=== PATIENT | male | born 1965 | race Caucasian/White ===

== ENCOUNTER 2020-04-23 14:07 | Emergency (ER) | payer SELFPAY ==
[~2020-04-23] VITALS: Ht 185.4 cm; Wt 122.5 kg
--- NOTE | 2020-04-23 14:07 | NUR ---
PT BIBA BLS TO ER BED 02
[2020-04-23] MEDS ORDERED: NACL 0.9% 1,000 ML IV ONE ×2 (14:40→16:55)
[2020-04-23 15:03] LABS: BASOPHILS % (AUTO) 0.5 % (0.0-2.0); EOSINOPHILS # (AUTO) 0.1 K/uL (0-0.4); EOSINOPHILS % (AUTO) 1.7 % (0.0-4.0); HEMATOCRIT 35.1 % (36-52); HEMOGLOBIN 11.5 g/dL (12.0-18.0); LYMPHOCYTES # (AUTO) 1.6 K/uL (2.0-11.5); LYMPHOCYTES % (AUTO) 31.2 % (20.5-51.1); MEAN CORPUSCULAR HEMOGLOBIN 29 pg (27-31); MEAN CORPUSCULAR HGB CONC 33 g/dL (33-37); MEAN CORPUSCULAR VOLUME 89.3 fL (80-94); MONOCYTES # (AUTO) 0.6 K/uL (0.8-1.0); NEUTROPHILS # (AUTO) 2.9 K/uL (1.8-7.7); NEUTROPHILS % (AUTO) 54.6 % (42.2-75.2); PLATELET COUNT (AUTO) 106 K/uL (140-450); RED BLOOD CELL COUNT(AUTO) 3.93 MIL/uL (4.20-6.10); RED CELL DISTRIBUTION WIDTH 15.6 % (11.6-13.7); WHITE BLOOD COUNT (AUTO) 5.3 K/uL (4.8-10.8)
[2020-04-23 15:24] LABS: ACETAMINOPHEN < 0.5 ug/ml (10-30); ALBUMIN 2.8 g/dL (3.4-5.0); ANION GAP 15.6 (8-16); ASPARTATE AMINOTRANSFERASE 140 U/L (15-37); CARBON DIOXIDE 22.6 mmol/L (21-32); CHLORIDE 103 mmol/L (98-107); CREATININE 0.7 mg/dL (0.6-1.3); GFR ARICAN-AMERICAN 148 mL/min (>90); GLUCOSE 113 mg/dL (74-106); POTASSIUM 3.2 mmol/L (3.5-5.1); SALICYLATE < 2.8 mg/dL (2.8-20.0); SODIUM SERUM 138 mmol/L (136-145); TOTAL BILIRUBIN 2.6 mg/dL (0.0-1.0); UREA NITROGEN, BLOOD 4 mg/dL (7-18)
--- NOTE | 2020-04-23 16:36 | NUR ---
PT MOVED TO ER BED 11
--- NOTE | 2020-04-23 16:36 | NUR ---
BIBA C/O ALOC/ETOH INTOXICATION. PT UNRESPONSIVE TO PAINFUL STIMULI. GCS 3/15, (1,1,1). UNABLE TO OBTAIN FUTHER HISTORY/INFORMATION. RR SHALLOW, O2 SAT 98% 2LMP. VSS AT THIS TIME. PT PLACED ON BEDSIDE DATA EXAMINATION CLERK. BED IN LOW POSITION, SIDE RAIL UP X1
--- NOTE | 2020-04-23 18:00 | NUR ---
ATTEMPTED STRAIGHT CATH - NO URINE AT THIS TIME.
--- NOTE | 2020-04-23 19:15 | NUR ---
RECIEVED REPORT FROM RAGHAVENDRA BARNEY. TRANSFER OF CARE AT THIS TIME.
--- NOTE | 2020-04-23 20:35 | NUR ---
PT BED CLEANED AND CHANGED INTO CLEAN GOWN. GIVEN A SANDWHICH AND JUICE. EQUAL CHEST RISE AND FALL.
--- NOTE | 2020-04-23 20:40 | NUR ---
PT UNABLE TO STAND UP FOR ROADTEST. PT OBEYS VERBAL COMMAND AND SOILED WITH URINE AT THE BEDSIDE. GREY MABRY ON PROCESS CLEANING THE PT.
--- NOTE | 2020-04-23 21:35 | NUR ---
PT SLEEPING IN BED. EQUAL CHEST RISE AND FALL. SAFETY MEASURES IN PLACE.
--- NOTE | 2020-04-23 23:39 | NUR ---
PT SLEEPING IN BED. EQUAL CHEST RISE AND FALL. SAFETY MEASURES IN PLACE.
--- NOTE | 2020-04-24 00:06 | NUR ---
PT ASLEEP ON BED, AROUSABLE AND ASK WILL TRY TO ROADTEST., PT REPLIED NOT READY YET. PT WILL CONTINUE TO MONITOR
--- NOTE | 2020-04-24 00:40 | NUR ---
DAYLIN SAID OK TO DC PT NOW. JOHNY LONG, PROVIDED. WILL CALL TAXI FOR PT.
--- NOTE | 2020-04-24 00:50 | NUR ---
Note yenny in EDM - 04/24/20 at 0104 by [facility] Patient discharged with v/s stable. Written and verbal after care instructions given and explained. Patient verbalized understanding. Wheel Chair Assisted with to MARIO. All questions addressed prior to discharge. Advised to follow up with PMD.
--- NOTE | 2020-04-24 00:50 | NUR ---
Patient discharged with v/s stable. Written and verbal after care instructions given and explained. Patient verbalized understanding. Wheel Chair Assisted with to MARIO ARAUJO CALLED FOR PT. All questions addressed prior to discharge. Advised to follow up with PMD.
[2020-04-24 01:06] VITALS: BP 115/60
== END 2020-04-24 00:50 | disposition home or self-care (01) ==
LOC: EDBD 14:07 → MED 14:07
DX: F10.129 Alcohol abuse with intoxication, unspecified (principal); R41.82 Altered mental status, unspecified; Y90.8 Blood alcohol level of 240 mg/100 ml or more
CPT/HCPCS: 70450; 80053; 85025; 96360; 96361; 99284; C1758; G0480; G0482; J7030

== ENCOUNTER 2020-08-29 21:55 | Emergency (ER) | payer SELFPAY ==
[~2020-08-29] VITALS: Ht 170.2 cm; Wt 101.6 kg
--- NOTE | 2020-08-29 22:05 | NUR ---
PT MARLENE OLIVIAS. TAKEN TOBED 6
--- NOTE | 2020-08-29 22:16 | NUR ---
ERMD AT BEDSIDE EVALUATING PT.
[2020-08-29 22:19] VITALS: BP 127/68
[2020-08-29] MEDS ORDERED: NACL 0.9% 1,000 ML IV ONE (22:20)
--- NOTE | 2020-08-29 22:26 | NUR ---
PER NOTESIN PATIENT BELONGINGS NKA AND MED HX: CHF, CAD, ETOH ABUSE, AND HX IF CDIFF. ACCUCHECK FROM EMS PRIOR TO ARRIVAL 96. ACCUCHECK REEVAULAUTED: 104 BY PRIMARY RN.
--- NOTE | 2020-08-29 22:38 | NUR ---
LABS DRAWN AND GIVEN TO ONUR PULMONARY FUNCTION TECHNICIAN.
--- NOTE | 2020-08-29 22:49 | NUR ---
55 Y/O M BIBA C/O ETOH INTOXICATION. PT UNAROUSABLE; PER EMS REPORT, WILL CRY AT TIMES AND GOES BACK TO SLEEP. PER REPORT, ROOMMATE CALLED STATING PT HAS HX OF ETOH ABUSE AND WAS FOUND SLEEPING AND UNAROUSABLE. PT PLACED ON 5L O2, SATING AT 99%. VSS. UNABLE TO OBTAIN MED HX OR ALLERGIES. PT PLACED ON INVESTIGATOR INTERNAL REVENUE AND PULSE OXIMETRY. BED LOCKED AND IN LOWEST POSITION, SIDE RAIL UPX2. WILL CONTINUE TO MONITOR. MED HX: UNOBTAINABLE ALLERGIES: UNOBTAINABLE
[2020-08-29 22:58] LABS: BASOPHILS % (AUTO) 0.6 % (0.0-2.0); EOSINOPHILS # (AUTO) 0.2 K/uL (0-0.4); EOSINOPHILS % (AUTO) 3.6 % (0.0-4.0); HEMATOCRIT 33.5 % (36-52); HEMOGLOBIN 10.6 g/dL (12.0-18.0); LYMPHOCYTES # (AUTO) 3.1 K/uL (2.0-11.5); LYMPHOCYTES % (AUTO) 50.3 % (20.5-51.1); MEAN CORPUSCULAR HEMOGLOBIN 24 pg (27-31); MEAN CORPUSCULAR HGB CONC 32 g/dL (33-37); MEAN CORPUSCULAR VOLUME 76.9 fL (80-94); MONOCYTES # (AUTO) 0.5 K/uL (0.8-1.0); MONOCYTES % (AUTO) 8.2 % (1.7-9.3); NEUTROPHILS # (AUTO) 2.3 K/uL (1.8-7.7); PLATELET COUNT (AUTO) 287 K/uL (140-450); RED BLOOD CELL COUNT(AUTO) 4.36 MIL/uL (4.20-6.10); RED CELL DISTRIBUTION WIDTH 18.5 % (11.6-13.7); WHITE BLOOD COUNT (AUTO) 6.1 K/uL (4.8-10.8)
[2020-08-29 23:01] LABS: ALBUMIN 2.9 g/dL (3.4-5.0); ANION GAP 17.4 (8-16); CARBON DIOXIDE 20.1 mmol/L (21-32); CREATININE 0.7 mg/dL (0.6-1.3); POTASSIUM 3.5 mmol/L (3.5-5.1); TOTAL BILIRUBIN 1.2 mg/dL (0.0-1.0)
[2020-08-29 23:11] LABS: NEUTROPHILS % (AUTO) 37.3 % (42.2-75.2)
--- NOTE | 2020-08-30 00:49 | NUR ---
Patient appears to be resting comfortably in bed. Vital Signs within normal limits. Respirations even and unlabored.
--- NOTE | 2020-08-30 02:29 | NUR ---
FABIOLA RAY ATTEMPTED TO ROAD TEST PT. PT HAS UNSTEADY GAIT. WILL CONTINUE TO MONITOR.
--- NOTE | 2020-08-30 02:37 | NUR ---
ATTEMPTED TO ROAD TEST AGAIN. PT ABLE TO WALK BACK AND FORTH FROM BED TO RESTROOM WITH NO DIFFICULTY. ABLE TO ANSWER QUESTIONS APPROPRIATELY.
--- NOTE | 2020-08-30 03:08 | NUR ---
Patient discharged with v/s stable. Written and verbal after care instructions given and explained. Patient verbalized understanding. Ambulatory with steady gait. All questions addressed prior to discharge. Advised to follow up with PMD.
[2020-08-30 03:09] VITALS: BP 137/94
== END 2020-08-30 03:08 | disposition home or self-care (01) ==
LOC: MED 21:55
DX: F10.129 Alcohol abuse with intoxication, unspecified (principal); I51.89 Other ill-defined heart diseases
CPT/HCPCS: 36415; 80053; 83690; 85025; 96360; 99285; G0482; J7030; 99283

== ENCOUNTER 2023-08-23 19:55 | Emergency (ER) | payer OTHER ==
[~2023-08-23] VITALS: Ht 177.8 cm; Wt 108.9 kg
[2023-08-23 20:02] VITALS: BP 170/96; PULSE 98; RESP 16; TEMP 98.3; O2SAT 98
[2023-08-23] MEDS ORDERED: ONDANSETRON 4 MG/2 ML VIAL IVP ONE (21:20)
[2023-08-23] MEDS ORDERED: MORPHINE SULFATE 4 MG/ML SYR IVP ONE (21:20)
[2023-08-23 21:53] LABS: BASOPHILS # (AUTO) 0.1 K/uL (0.00-0.22); BASOPHILS % (AUTO) 0.5 % (0.0-2.0); EOSINOPHILS # (AUTO) 0.2 K/uL (0-0.4); EOSINOPHILS % (AUTO) 1.9 % (0.0-4.0); HEMATOCRIT 48.2 % (36-52); HEMOGLOBIN 16.3 g/dL (12.0-18.0); LYMPHOCYTES # (AUTO) 2.8 K/uL (2.0-11.5); LYMPHOCYTES % (AUTO) 24.4 % (20.5-51.1); MEAN CORPUSCULAR HEMOGLOBIN 29 pg (27-31); MEAN CORPUSCULAR HGB CONC 34 g/dL (33-37); MEAN CORPUSCULAR VOLUME 86.8 fL (80-94); MONOCYTES # (AUTO) 1.5 K/uL (0.8-1.0); MONOCYTES % (AUTO) 12.7 % (1.7-9.3); NEUTROPHILS # (AUTO) 6.9 K/uL (1.8-7.7); NEUTROPHILS % (AUTO) 60.5 % (42.2-75.2); PLATELET COUNT (AUTO) 244 K/uL (140-450); RED BLOOD CELL COUNT(AUTO) 5.56 MIL/uL (4.20-6.10); WHITE BLOOD COUNT (AUTO) 11.4 K/uL (4.8-10.8)
[2023-08-23 22:13] LABS: ALBUMIN 3.1 g/dL (3.4-5.0); ANION GAP 17.6 (8-16); CALCIUM 8.6 mg/dL (8.5-10.1); CARBON DIOXIDE 21.3 mmol/L (21-32); CREATININE 0.8 mg/dL (0.6-1.3); POTASSIUM 3.9 mmol/L (3.5-5.1); TOTAL BILIRUBIN 2.4 mg/dL (0.0-1.0); TOTAL PROTEIN, SERUM 8.5 g/dL (6.4-8.2)
[2023-08-23 22:18] LABS: INR 1.12 (0.8-1.2); PARTIAL THROMBOPLASTIN TIME 28.2 secs (22-35.6); PROTHROMBIN TIME 11.7 secs (10.8-13.4)
[2023-08-24] MEDS ORDERED: ACET-10509 PO ×2 (00:31→01:10)
[2023-08-24] MEDS ORDERED: SULF-59 PO ×2 (00:31→01:10)
[2023-08-24 01:20] VITALS: BP 143/65; PULSE 88; RESP 16; TEMP 98.3; O2SAT 95
== END 2023-08-24 01:20 | disposition home or self-care (01) ==
LOC: MED 19:55
DX: S91.302A Unspecified open wound, left foot, initial encounter (principal); X58.XXXA Exposure to other specified factors, initial encounter; Y93.89 Activity, other specified; Y92.89 Other specified places as the place of occurrence of the external cause; Y99.8 Other external cause status
CPT/HCPCS: 36415; 73630; 80053; 85025; 85610; 85730; 86886; 86900; 86901; 96374; 96375; 99284; J2270; J2405

== ENCOUNTER 2024-04-10 13:26 | Emergency (ER) | payer OTHER ==
[~2024-04-10] VITALS: Ht 161.3 cm; Wt 104.8 kg
[~2024-04-10 13:26] MED LIST: ACET-10509 PO; SULF-59 PO
[2024-04-10 13:45] VITALS: BP 138/62; PULSE 84; RESP 18; TEMP 97.8; O2SAT 92
[2024-04-10 15:02] LABS: BASOPHILS % (AUTO) 0.5 % (0.0-2.0); EOSINOPHILS # (AUTO) 0.2 K/uL (0-0.4); EOSINOPHILS % (AUTO) 3.1 % (0.0-4.0); HEMATOCRIT 40.9 % (36-52); HEMOGLOBIN 12.7 g/dL (12.0-18.0); LYMPHOCYTES % (AUTO) 31.8 % (20.5-51.1); MEAN CORPUSCULAR HEMOGLOBIN 23 pg (27-31); MEAN CORPUSCULAR HGB CONC 31 g/dL (33-37); MEAN CORPUSCULAR VOLUME 73.7 fL (80-94); MONOCYTES # (AUTO) 0.8 K/uL (0.8-1.0); MONOCYTES % (AUTO) 12.4 % (1.7-9.3); NEUTROPHILS # (AUTO) 3.4 K/uL (1.8-7.7); NEUTROPHILS % (AUTO) 52.2 % (42.2-75.2); PLATELET COUNT (AUTO) 233 K/uL (140-450); RED BLOOD CELL COUNT(AUTO) 5.55 MIL/uL (4.20-6.10); RED CELL DISTRIBUTION WIDTH 21.4 % (11.6-13.7); WHITE BLOOD COUNT (AUTO) 6.4 K/uL (4.8-10.8)
[2024-04-10 15:20] LABS: ANION GAP 12.2 (8-16); CALCIUM 8.6 mg/dL (8.5-10.1); CARBON DIOXIDE 22.7 mmol/L (21-32); CREATININE 0.8 mg/dL (0.6-1.3); POTASSIUM 3.9 mmol/L (3.5-5.1)
[2024-04-10 15:25] LABS: ALBUMIN 3.2 g/dL (3.4-5.0); BILIRUBIN,DIRECT 0.4 mg/dL (0.0-0.3); TOTAL PROTEIN, SERUM 7.7 g/dL (6.4-8.2)
[2024-04-10] MEDS ORDERED: CLOT1CRE82 TP (16:01)
[2024-04-10 16:17] LABS: APPEARANCE,URINE CLEAR (CLEAR); BILIRUBIN,URINE 1+ (NEGATIVE); BLOOD, URINE TRACE-I (NEGATIVE); COLOR,URINE YELLOW (YELLOW); LEUKOCYTE ESTERASE ,URINE 1+ (NEGATIVE); NITRITE, URINE NEGATIVE (NEGATIVE); PROTEIN,URINE NEGATIVE (NEGATIVE); UGLUCOSE NEGATIVE (NEGATIVE); UROBILINOGEN,URINE 0.2 EU/dL (0.2 - 1)
[2024-04-10 16:26] LABS: ICTOTEST NEGATIVE (NEGATIVE)
[2024-04-10 16:27] LABS: BACTERIA,URINE 10-30 (MOD) /HPF (None Seen); SQUAMOUS EPITHELIAL CELL,UR 0-3 (FEW) /LPF (0-3 (FEW))
== END 2024-04-10 16:25 | disposition home or self-care (01) ==
LOC: MED 13:26
DX: B35.4 Tinea corporis (principal); R21 Rash and other nonspecific skin eruption; Z79.1 Long term (current) use of non-steroidal anti-inflammatories (NSAID); Z79.899 Other long term (current) drug therapy
CPT/HCPCS: 36415; 80048; 80076; 81001; 85025; 87086; 99283